=== PATIENT | female | born 1965 ===

== ENCOUNTER → 2018-01-16 | Outpatient (CLI) | payer OTHER ==
[2018-01-16 12:56] LABS: Urine Bacteria NONE SEEN /hpf (None Seen); Urine Blood Negative /uL (Negative); Urine Mucus FEW (None Seen); Urine Specific Gravity 1.017 (1.001-1.035); Urine WBC 4 /hpf (0 - 5)
[2018-01-16 12:58] LABS: Basophils # (auto) 0 uL; Basophils % (auto) 0.1 % (0.0-2.0); Eosinophils # (auto) 0.1 uL; Eosinophils % (auto) 1.1 % (0.0-7.0); Hematocrit 45.1 % (36.0-46.0); Hemoglobin 15.6 g/dL (12.2-16.2); Lymphocytes # (auto) 2.5 uL; Lymphocytes % (auto) 28.3 % (10.0-50.0); Mean Corpuscular Hemoglobin 32.6 pg (28.0-32.0); Mean Corpuscular Hgb Conc. 34.7 g/dL (32.0-36.0); Monocytes # (auto) 0.9 uL; Monocytes % (auto) 9.6 % (0.0-12.0); Neutrophils # (auto) 5.4 uL; Neutrophils % (auto) 60.9 % (37.0-80.0); Nucleated Red Blood Cells % 0.1 %; Platelet Count (auto) 317 10^3/uL (140-450); Red Blood Cells 4.79 10^6/uL (4.0-5.20); Red Cell Distribution Width 13.5 % (11.8-14.3); White Blood Cell 8.8 10^3/uL (4.4-10.8)
[2018-01-16 13:16] LABS: Albumin 3.8 g/dL (3.4-5.0); BUN/Creatinine Ratio 14.5; Bilirubin, Total 0.4 mg/dL (0.2-1.0); Calcium 9.3 mg/dL (8.5-10.1); Potassium 3.9 mmol/L (3.5-5.1); Total Protein 8.2 g/dL (6.4-8.2)
== END | disposition home or self-care (01) ==
LOC: LAB 11:49
PROVIDERS: ATTEND Nurse Practitioner
DX: E78.5 Hyperlipidemia, unspecified (principal)
CPT/HCPCS: 36415; 80053; 80061; 81001; 82306; 82607; 83036; 85025